=== PATIENT | female | born 1985 | race African-American/Black ===

== ENCOUNTER 2016-11-19 02:16 | Emergency (ER) ==
[2016-11-19 02:41] VITALS: BP 146/103
--- NOTE | 2016-11-19 03:14 | PROVIDER DOCUMENTATION ---
HPI-Respiratory General - General Chief Complaint: Cough Stated Complaint: FLU SX Time Seen by Provider: 11/19/16 02:19 Source: family Allergies/Adverse Reactions: Patient Allergies Allergy/AdvReac Type Severity Reaction Status Date / Time No Known Allergies Allergy Verified 06/28/16 12:04 Home Medications: Home Medication List Medication Instructions Recorded Confirmed Last Taken Type Azithromycin [Zithromax Z-Ji] 250 mg PO DIRECTED #1 pkg 11/19/16 Unknown Rx Prednisone 20 mg PO BID #10 tablet 11/19/16 Unknown Rx Ranitidine [Zantac] 150 mg PO DAILY 11/19/16 11/19/16 Unknown History - History of Present Illness-Resp Quality of Pain: reports: burning Onset/Duration: reports: 1/2 hour ago Context: reports: recent URI Exposure: reports: allergen exposure Cough Quality/Degree: reports: mild Current Respiratory Medication Therapy: Initiated none Modifying Factors: improves with: nothing Associated Symptoms: reports: denies symptoms Similar Symptoms Previously?: Yes Recently seen or treated by another doctor?: Yes Review of Systems - Adult - REVIEW OF SYSTEMS - ADULT Constitutional: reports: no symptoms reported Eyes: reports: no symptoms reported Ears, Nose, Mouth & Throat: reports: no symptoms reported Cardiovascular: reports: no symptoms reported Respiratory: reports: no symptoms reported Gastrointestinal: reports: no symptoms reported Genitourinary: reports: no symptoms reported Musculoskeletal: reports: no symptoms reported Integumentary: reports: no symptoms reported Neurological: reports: no symptoms reported Psychiatric: reports: no symptoms reported Endocrine: reports: no symptoms reported Hematologic/Lymphatic: reports: no symptoms reported Allergic/Immunologic: reports: no symptoms reported All Other Systems: Reviewed and Negative Past History - Adult - PAST MEDICAL HISTORY-ADULT Review of Records: reports: Old Records Reviewed, Nursing Assessment Review, Medications Reviewed, Social history reviewed & non-contributory. Major Childhood Illnesses: reports: denies history Cardiovascular: reports: HTN Respiratory: reports: denies history Gastrointestinal: reports: denies history Obstetrical/Gynecological: reports: denies history Genitourinary: reports: denies history Musculoskeletal: reports: denies history Neurological: reports: denies history Endocrine/Immune: reports: denies history Other Conditions: reports: denies history - PRIOR SURGERIES/PROCEDURES Surgical/Procedure History: reports: , other (tubal ligation) - IMMUNIZATION STATUS Childhood Immunizations: See Nurse Assessment Flu Vaccine: See Nurse Assessment - FAMILY HISTORY Family History: reviewed, not pertinent Physical Exam-General - CONSTITUTIONAL General Appearance: appears well - EYES Eyes: anisocoria - HEAD, EARS, NOSE, MOUTH & THROAT HENMT: moist mucous membranes - NECK Neck: non-tender - RESPIRATORY Respiratory: lungs clear - CARDIOVASCULAR Cardiovascular: normal peripheral pulses - CHEST (BREASTS) Chest/Breast: deferred - LYMPHATIC Lymphatic: no adenopathy - MUSCULOSKELETAL Back Exam: normal inspection Extremity: normal range of motion - SKIN Integumentary: normal color - NEUROLOGIC Neurologic: grossly normal - PSYCHIATRIC Psych/Mental Status: normal mood/affect Departure - Departure Time of Disposition Order: 03:00 DIAGNOSIS: Upper respiratory infection Disposition: HOME 01 Certified Medical Emergency: Emergent Condition: Stable Prescriptions: Prednisone 20 mg PO BID #10 tablet Azithromycin [Zithromax Z-Ji] 250 mg PO DIRECTED #1 pkg Referrals: Zehra Chavez MD [Primary Care Provider] - Forms: Return to School/Parent Work Instructions: Azithromycin tablets, Upper Respiratory Infection, Adult, Easy-to -Read, Prednisone tablets
== END 2016-11-19 03:20 | disposition home or self-care (01) ==
LOC: P.ED 02:16
DX: J06.9 Acute upper respiratory infection, unspecified (principal); R05 Cough; I10 Essential (primary) hypertension
CPT/HCPCS: 87081; 87430; 87804